=== PATIENT | female | born 1985 | race Caucasian/White ===

== ENCOUNTER 2017-06-20 21:53 | Emergency (ER) | payer SELFPAY ==
[2017-06-20 22:07] VITALS: O2SAT 100
[2017-06-20 23:18] LABS: HEMATOCRIT 35.1 % (34.0-47.0); MEAN CELL VOLUME 88.5 fl (81.0-99.0); MEAN CORPUSCULAR HEMOGLOBIN 29.1 pg (27.0-31.0); MEAN CORPUSCULAR HGB CONC 32.9 g/dL (33.0-37.0); RED CELL DISTRIBUTION WIDTH 14.7 % (11.5-14.5); WHITE BLOOD COUNT 8.1 K/uL (4.8-10.8)
[2017-06-20 23:30] LABS: ALB/GLOB RATIO 1.4 (1.0-2.1); ALKALINE PHOSPHATASE 48 U/L (38-126); ALT/SGPT 25 U/L (9-52); AST/SGOT 25 U/L (14-36); BILIRUBIN,TOTAL 0.7 mg/dl (0.2-1.3); BLOOD UREA NITROGEN 11 mg/dl (7-17); CALCIUM 9.4 mg/dL (8.4-10.2); CARBON DIOXIDE 24 mmol/L (22-30); CHLORIDE 104 mmol/L (98-107); GFR AFRICAN-AMERICAN > 60; GLUCOSE,RANDOM 114 mg/dL (65-105); SODIUM 137 mmol/l (132-148); TOTAL PROTEIN 7.8 G/DL (6.3-8.2)
[2017-06-21] LABS: THYROID STIMULATING HORMONE 1.84 mIU/ML (0.46-4.68)
[2017-06-21 00:09] VITALS: BP 112/72; PULSE 79; RESP 20; TEMP 98.5
[2017-06-21 00:15] LABS: POTASSIUM 4.1 MMOL/L (3.6-5.0)
--- NOTE | 2017-06-21 01:18 | ED PDOC ---
HPI: General Adult Time Seen by Provider: 06/20/17 22:15 Chief Complaint (Nursing): Anxiety Chief Complaint (Provider): Anxiety History Per: Patient History/Exam Limitations: no limitations Onset/Duration Of Symptoms: Days (x today) Additional Complaint(s): Santalea Valladares presents to the ED for chief complaints of anxiety and palpitations. Patient reports having anxiety for 7 years, but for the last few episodes she felt more anxious than ever. Primary care provider started her on Lexapro 3 days ago but patient hasn't seen psychiatrist. Of note patients primary care provider didn't do labs prior to her taking Lexapro. PMD: Riya Burns. AMAURY Past Medical History Reviewed: Historical Data, Nursing Documentation, Vital Signs Vital Signs: Last Vital Signs Temp 98.5 F 06/21/17 00:08 Pulse 79 06/21/17 00:08 Resp 20 06/21/17 00:08 BP 112/72 06/21/17 00:08 Pulse Ox 100 06/21/17 01:53 - Medical History PMH: Anxiety - Surgical History Surgical History: No Surg Hx - Family History Family History: States: No Known Family Hx - Living Arrangements Living Arrangements: With Family - Social History Current smoker - smoking cessation education provided: No Alcohol: None Drugs: Denies - Home Medications Home Medications: Ambulatory Orders Medication Instructions Recorded Ibuprofen [Motrin Tab] 600 mg PO Q6 PRN #20 tab 06/08/15 oxyCODONE/Acetaminophen [Percocet 1 tab PO Q6H PRN #10 tab 06/08/15 5/325 mg Tab] Lorazepam [Ativan] 0.5 mg PO Q8H PRN #10 tab 06/21/17 - Allergies Allergies/Adverse Reactions: Allergies Allergy/AdvReac Type Severity Reaction Status Date / Time No Known Allergies Allergy Verified 06/20/17 22:07 Review of Systems ROS Statement: Except As Marked, All Systems Reviewed And Found Negative Cardiovascular: Positive for: Chest Pain, Palpitations Psych: Positive for: Anxiety. Negative for: Suicidal ideation Physical Exam - Reviewed Nursing Documentation Reviewed: Yes Vital Signs Reviewed: Yes - Physical Exam Appears: Positive for: Well, Non-toxic, No Acute Distress Head Exam: Positive for: ATRAUMATIC, NORMAL INSPECTION, NORMOCEPHALIC Skin: Positive for: Normal Color Eye Exam: Positive for: Normal appearance, EOMI, PERRL ENT: Positive for: Normal ENT Inspection Neck: Positive for: Normal, Painless ROM, Supple Cardiovascular/Chest: Positive for: Regular Rate, Rhythm. Negative for: Murmur , Tachycardia Respiratory: Positive for: Normal Breath Sounds. Negative for: Wheezing, Respiratory Distress Gastrointestinal/Abdominal: Positive for: Normal Exam, Soft. Negative for: Tenderness Back: Positive for: Normal Inspection Rectal: Positive for: Deferred Extremity: Positive for: Normal ROM Lymphatic: Positive for: Deferred Neurologic/Psych: Positive for: Alert, Oriented - Laboratory Results Result Diagrams: 06/20/17 23:13 06/20/17 23:13 - ECG O2 Sat by Pulse Oximetry: 100 (RA) Pulse Ox Interpretation: Normal Medical Decision Making Medical Decision Making: Time: 2214: Initial Impression: 31 year old female with Anxiety Initial Plan: * Labs ordered * Re-evaluation Patient prescribed with Ativan medication to go home. Scribe Attestation: Documented by Milagros Bernstein acting as a scribe for Lela Krishnamurthy PA-C. Provider Scribe Attestation: All medical record entries made by the Scribe were at my direction and personally dictated by me. I have reviewed the chart and agree that the record accurately reflects my personal performance of the history, physical exam, medical decision making, and the department course for this patient. I have also personally directed, reviewed, and agree with the discharge instructions and disposition. Time Disposition - Clinical Impression Clinical Impression: Anxiety - Disposition Referrals: [facility] [Outside] Disposition: Routine/Home Disposition Time: 01:44 Condition: STABLE Prescriptions: Lorazepam [Ativan] 0.5 mg PO Q8H PRN #10 tab PRN Reason: Anxiety Instructions: Anxiety (ED) Forms: [employer] ([place])
--- NOTE | 2017-06-21 01:20 | ED PDOC ---
- Laboratory Results Result Diagrams: 06/20/17 23:13 06/20/17 23:13 - ECG O2 Sat by Pulse Oximetry: 100 Disposition - Clinical Impression Clinical Impression: Anxiety - Disposition Referrals: [facility] [Outside] Condition: STABLE Prescriptions: Lorazepam [Ativan] 0.5 mg PO Q8H PRN #10 tab PRN Reason: Anxiety Instructions: Anxiety (ED) Forms: [employer] ([place]) History of Present Illnes - History of Present Illness Reason for Visit: Anxiety History of Present Illness: Santa Valladares is a 31 year old female, with a past medical history of anxiety, who presents to the emergency department complaining of worsening anxiety associated with chest pain and palpitations onset for 3 days. Patient report she was recently started on lexapro for anxiety, but it has only worsened the symptoms leading to more panic attacks at home. Patient denies suicidal and homicidal ideations. PMD: None provided - Past Medical History Psych: Anxiety - Past Family History Family History: None - Past Social History Smoke: No Alcohol: None Drugs: None Review Of Systems Except As Marked, All Systems Reviewed And Found Negative. Cardiovascular: Positive for: Chest Pain, Palpitations Psych: Positive for: Anxiety Physical Exam - Physical Exam Appears: Well, Non-toxic, No Acute Distress Skin: Normal Color, Warm, Dry Head: Atraumatic, Normacephalic Eye(s): bilateral: Normal Inspection Neck: Normal Respiratory: Normal Breath Sounds Extremity: Normal ROM Neurological/Psych: Oriented x3 (alert)
--- NOTE | 2017-06-21 13:12 | CARD ---
APPROVED REPORT EKG Measurement Heart [id number] <Conclusion> Normal sinus rhythm Normal ECG
== END 2017-06-21 01:30 | disposition home or self-care (01) ==
LOC: H.ER 21:53
DX: F41.9 Anxiety disorder, unspecified (principal)

== ENCOUNTER 2018-08-07 22:29 | Emergency (ER) | payer SELFPAY ==
[2018-08-07 22:44] VITALS: BP 106/70; PULSE 80; RESP 16; TEMP 97.1; O2SAT 99
[2018-08-08 01:42] LABS: BASO % 0.3 % (0.0-2.0); EOS # 0.4 K/uL (0.0-0.7); EOS % 4.7 % (0.0-4.0); LYMPH # 2.5 K/uL (1.0-4.3); LYMPH % 29.9 % (20.0-40.0); MEAN CELL VOLUME 90.2 fl (81.0-99.0); MEAN CORPUSCULAR HEMOGLOBIN 29.8 pg (27.0-31.0); MEAN PLATELET VOLUME 8.4 fl (7.2-11.7); MONO # 0.6 K/uL (0.0-0.8); MONO % 7.2 % (0.0-10.0); NEUT # 4.8 K/uL (1.8-7.0); NEUT % 57.9 % (50.0-75.0); RBC 4.03 Mil/uL (3.80-5.20); RED CELL DISTRIBUTION WIDTH 14.8 % (11.5-14.5); WHITE BLOOD COUNT 8.2 K/uL (4.8-10.8)
[2018-08-08 01:51] LABS: BLOOD UREA NITROGEN 9 mg/dl (7-17); CALCIUM 9.1 mg/dL (8.4-10.2); GFR NON-AFRICAN AMERICAN > 60
--- NOTE | 2018-08-08 01:52 | ED PDOC ---
HPI: Female Pain Time Seen by Provider: 08/07/18 23:34 Chief Complaint (Nursing): Female Genitourinary Chief Complaint (Provider): Female Genitourinary History Per: Patient History/Exam Limitations: no limitations Onset/Duration Of Symptoms: Days (1 1/2 weeks) Current Symptoms Are (Timing): Still Present Quality Of Discomfort: "Pain" Associated Symptoms: Urinary Symptoms Additional Complaint(s): 32 year old female presents to the ED with left sided flank pain and burning upon urination. 1 1/2 weeks ago, patient developed urinary symptoms but did not seek treatment for UTI. Pain is intermittent. Denies fever, chills and vomiting. PMD: none Past Medical History Reviewed: Historical Data, Nursing Documentation, Vital Signs Vital Signs: Last Vital Signs Temp 97.1 F L 08/07/18 22:40 Pulse 80 08/07/18 22:40 Resp 16 08/07/18 22:40 BP 106/70 08/07/18 22:40 Pulse Ox 99 08/07/18 22:40 - Medical History PMH: Anxiety Denies: Diabetes, Hepatitis, HIV, HTN, Seizures, Sexually Transmitted Disease - Surgical History Surgical History: No Surg Hx - Family History Family History: States: Unknown Family Hx - Home Medications Home Medications: Ambulatory Orders Medication Instructions Recorded Ibuprofen [Motrin Tab] 600 mg PO Q6 PRN #20 tab 06/08/15 oxyCODONE/Acetaminophen [Percocet 1 tab PO Q6H PRN #10 tab 06/08/15 5/325 mg Tab] Lorazepam [Ativan] 0.5 mg PO Q8H PRN #10 tab 06/21/17 Docusate Sodium [Dulcolax Stool 100 mg PO DAILY #12 capsule 08/08/18 Softener] Nitrofurantoin Macrocrystals 100 mg PO BID 5 Days cap 08/08/18 [Macrobid] - Allergies Allergies/Adverse Reactions: Allergies Allergy/AdvReac Type Severity Reaction Status Date / Time No Known Allergies Allergy Verified 08/07/18 22:40 Review of Systems ROS Statement: Except As Marked, All Systems Reviewed And Found Negative Genitourinary Female: Positive for: Dysuria Musculoskeletal: Positive for: Back Pain (left flank pain) Physical Exam - Reviewed Nursing Documentation Reviewed: Yes Vital Signs Reviewed: Yes - Physical Exam Appears: Positive for: Non-toxic, No Acute Distress Head Exam: Positive for: ATRAUMATIC, NORMAL INSPECTION, NORMOCEPHALIC Skin: Positive for: Normal Color, Warm, Dry Eye Exam: Positive for: Normal appearance, EOMI, PERRL Neck: Positive for: Normal, Painless ROM, Supple Cardiovascular/Chest: Positive for: Regular Rate, Rhythm. Negative for: Murmur Respiratory: Positive for: Normal Breath Sounds. Negative for: Respiratory Distress Gastrointestinal/Abdominal: Positive for: Normal Exam, Soft. Negative for: Tenderness Back: Positive for: Other (left flank tenderness) Extremity: Positive for: Normal ROM. Negative for: Deformity Neurologic/Psych: Positive for: Alert, Oriented (x 3). Negative for: Motor/ Sensory Deficits - Laboratory Results Result Diagrams: 08/08/18 01:38 08/08/18 01:38 - ECG O2 Sat by Pulse Oximetry: 99 (RA) Pulse Ox Interpretation: Normal Medical Decision Making Medical Decision Makin:43 A&P: 32 year old with flank pain and urinary symptoms; UTI vs pyelo vs kidney stones Patient is well appearing with normal vitals Orders --Abd Pelvis CT --BMP --urine preg --Urine dip --CBC --Toradol 30 mg IVP 05:[address] FINDINGS: Lung bases: Intact. No mass. No consolidation. ABDOMEN: Liver: Intact. No mass. Gallbladder and bile ducts: Intact. No calcified stones. No ductal dilation. Pancreas: No mass. No ductal dilation. Spleen: No splenomegaly. Adrenals: No mass. Kidneys and ureters: No solid mass. No hydronephrosis. Stomach and bowel: Large amount of retained feces throughout the colon. PELVIS: Appendix: The visualized appendix appears normal. Likelihood of acute appendix inflammation is low. Bladder: No mass. Reproductive: Fluid in the endometrial canal measuring up to 1.1 cm thick. ABDOMEN and PELVIS: Intraperitoneal space: No free air. No significant fluid collection. Bones/joints: No acute fracture. No dislocation. Soft tissues: No radiopaque foreign body. Vasculature: No aortic aneurysm. Lymph nodes: No enlarged lymph nodes. IMPRESSION: 1. Fluid in the endometrial canal measuring up to 1.1 cm thick. Correlate with menstruation date. 2. Large amount of retained feces throughout the colon. 0548 Upon provider evaluation patient is medically stable, and requires no further treatment in the ED at this time. Counseling was provided and all questions were answered regarding diagnosis and need for follow up. Return if symptoms persist or worsen. Scribe Attestation: Documented by Masha Moreland acting as a scribe for Raul De La Cruz MD Provider Scribe Attestation: All medical record entries made by the Scribe were at my direction and personally dictated by me. I have reviewed the chart and agree that the record accurately reflects my personal performance of the history, physical exam, medical decision making, and the department course for this patient. I have also personally directed, reviewed, and agree with the discharge instructions and disposition. Disposition - Clinical Impression Clinical Impression: Constipation, UTI (urinary tract infection) - Patient ED Disposition Is Patient to be Admitted: No - Disposition Referrals: [facility] [Outside] Disposition Time: 05:48 Condition: STABLE Prescriptions: Docusate Sodium [Dulcolax Stool Softener] 100 mg PO DAILY #12 capsule Nitrofurantoin Macrocrystals [Macrobid] 100 mg PO BID 5 Days cap Instructions: Urinary Tract Infections in Adults, Constipation in Adults Forms: [employer] ([place])
[2018-08-08] MEDS ORDERED: Iohexol 300 100 ML IJ ONE (02:26)
[2018-08-08] MEDS ORDERED: Sodium Chloride 0.9% 50 ML IV ONE (02:26)
--- NOTE | 2018-08-08 11:22 | CT ---
Date of service: 08/08/2018 PROCEDURE: CT Abdomen and Pelvis with contrast HISTORY: L flank pain, hematuria COMPARISON: None. TECHNIQUE: Contrast dose: 95 milliliters Radiation dose: Total exam DLP = 220 mGy-cm. This CT exam was performed using one or more of the following dose reduction techniques: Automated exposure control, adjustment of the mA and/or kV according to patient size, and/or use of iterative reconstruction technique. FINDINGS: LOWER THORAX: Visualized lung bases show no evidence of infiltrate or effusion. Visualized esophagus is unremarkable. Stomach and duodenum are within normal limits. LIVER: Unremarkable. No gross lesion or ductal dilatation. GALLBLADDER AND BILE DUCTS: Gallbladder is decompressed limiting evaluation. Common bile duct is normal in size. PANCREAS: Unremarkable. No gross lesion or ductal dilatation. SPLEEN: Unremarkable. ADRENALS: Unremarkable. No mass. KIDNEYS AND URETERS: No evidence of hydronephrosis, perinephric change, or renal calculus. No renal masses seen. Ureters are unremarkable. VASCULATURE: Unremarkable. No aortic aneurysm. BOWEL: Unremarkable. No obstruction. No gross mural thickening. No pericolonic inflammatory change noted. No bowel obstruction seen. Moderate residual fecal material throughout the colon. APPENDIX: Normal appendix. PERITONEUM: Unremarkable. No free fluid. No free air. LYMPH NODES: Unremarkable. No enlarged lymph nodes. BLADDER: Unremarkable. REPRODUCTIVE: There is low-density fluid seen in the endometrial canal, nonspecific in a patient of this age. Correlation with menstrual cycle would be suggested. No focal fibroid seen. Uterus is top-normal in size. A few small follicles are seen in the ovaries. No adnexal masses are identified. BONES: No acute fracture. OTHER FINDINGS: Small ventral hernia is noted in the midline umbilical region. IMPRESSION: No appreciable acute inflammatory process in the abdomen or pelvis. Small amount of nonspecific fluid in the endometrial canal. This agrees with preliminary report provided by the on-call radiologist.
== END 2018-08-08 05:59 | disposition home or self-care (01) ==
LOC: H.ER 22:29
DX: K59.00 Constipation, unspecified (principal); N39.0 Urinary tract infection, site not specified; F41.9 Anxiety disorder, unspecified
CPT/HCPCS: 74177; 80048; 81025; 85025; 96374; 99283; J1885; Q9967